=== PATIENT | female | born 1950 | race Caucasian/White ===

== ENCOUNTER 2017-08-17 11:34 | Emergency (ER) | payer OTHER ==
[~2017-08-17] VITALS: Ht 154.9 cm; Wt 66.7 kg
[2017-08-17 11:37] VITALS: Ht 154.9 cm; Wt 66.7 kg
[2017-08-17] MEDS ORDERED: ACETAMINOPHEN 500 MG TAB PO STA (11:53)
[2017-08-17] MEDS ORDERED: BISM262O23 PO (11:54)
[2017-08-17] MEDS ORDERED: AMOX500C2 PO (11:54)
[2017-08-17] MEDS ORDERED: ACET500C5 PO (11:54)
--- NOTE | 2017-08-17 11:57 | ERD ---
ER Documentation Chief Complaint Chief Complaint pt bib family with c/o sore throat x 3 days HPI This 67-year-old female presents with sore throat for last 3 days. She also has chills. She is no significant cough, no vomiting abdominal pain. She has had some diarrhea nonbloody and no mucus ROS All systems reviewed and are negative except as per history of present illness. Medications Home Meds Active Scripts Bismuth Subsalicylate* (Pepto-Bismol*) 262 Mg/15 Ml Oral.susp, 15 ML PO Q3H Y for DIARRHEA for 4 Days, ML Prov:FITO CAUSEY MD 08/17/17 Acetaminophen* (Tylophen*) 500 Mg Capsule, 1 CAP PO Q6H Y for PAIN AND OR ELEVATED TEMP, #15 CAP Prov:FITO CAUSEY MD 08/17/17 Amoxicillin* (Amoxicillin*) 500 Mg Cap, 500 MG PO TID for 10 Days, CAP Prov:FITO CAUSEY MD 08/17/17 Allergies Allergies: Coded Allergies: No Known Allergy (Unverified , 08/17/17) Physical Exam Vitals Vital Signs Date Time Temp Pulse Resp B/P Pulse Ox O2 Delivery O2 Flow Rate FiO2 08/17/17 11:37 97.9 78 18 138/78 98 Physical Exam Const: [] Alert, [id number]. Head: Atraumatic Eyes: Normal Conjunctiva ENT: Normal External Ears, Nose and Mouth. Erythema of the posterior oropharynx. Neck: Full range of motion..~ No meningismus. Resp: Clear to auscultation bilaterally Cardio: Regular rate and rhythm, no murmurs Abd: Soft, non tender, non distended. Normal bowel sounds Skin: No petechiae or rashes Back: No midline or flank tenderness Ext: No cyanosis, or edema Neur: Awake and alert Psych: Normal Mood and Affect Results 24 hrs Current Medications Medications (Trade) Dose Ordered Sig/Khanh Route PRN Reason Start Time Stop Time Status Last Admin Dose Admin Acetaminophen (Tylenol Tab) 500 mg ONCE STAT PO 08/17/17 11:53 08/17/17 11:54 DC Procedures/MDM She presents with signs of pharyngitis febrile illness. She has no evidence of abscess, airway obstruction, sepsis. She will treated with amoxicillin and Tylenol Pepto-Bismol, primary care follow-up and return precautions. Departure Diagnosis: Primary Impression: Sore throat Additional Impression: Diarrhea Diarrhea type: unspecified type Qualified Code: R19.7 - Diarrhea, unspecified type Condition: Stable Patient Instructions: Pharyngitis, Strep (Presumed) Additional Instructions: Cheque otro vez con alexander doctor primario en el proximo garner or regresa para mas o nueva simptomas. FITO CAUSEY MD Aug 17, 2017 11:57
== END 2017-08-17 12:04 | disposition home or self-care (01) ==
LOC: FTE 11:34
DX: J02.9 Acute pharyngitis, unspecified (principal); R19.7 Diarrhea, unspecified
CPT/HCPCS: Z7502; Z7610; 99283

== ENCOUNTER 2018-05-14 20:27 | Emergency (ER) | END 2018-05-14 20:51 | disposition left against medical advice (07) ==

== ENCOUNTER 2018-06-07 09:04 | Emergency (ER) | END 2018-06-07 10:41 | disposition home or self-care (01) ==

== ENCOUNTER 2019-01-20 11:00 | Emergency (ER) | payer BC, OTHER ==
[~2019-01-20] VITALS: Ht 160 cm; Wt 70.5 kg
[~2019-01-20 11:00] MED LIST: ACET500C5 PO; AMOX500C2 PO; BISM262O23 PO; NAPR-985 PO
[2019-01-20 11:03] VITALS: Ht 160 cm; Wt 70.5 kg
[2019-01-20] MEDS ORDERED: KETOROLAC 30 MG INJ IM STA (11:57)
[2019-01-20] MEDS ORDERED: MELO15TA30 PO (14:11)
--- NOTE | 2019-01-20 14:46 | ERD ---
ER Documentation Chief Complaint Chief Complaint RIGHT KNEE PAIN/INJURY X 1 WEEK GOT WORSE SINCE LAST NIGHT HPI 68-year-old female patient with a past medical history of hypertension presents to the ED complaining of right knee pain and injury that started about 1 week ago. Patient reports that she may be apply more pressure on her right knee since she had a left hip injury about 1 year ago. Describes pain as a strong sensation and rates it a 10 out of 10. States that she been taking naproxen and ibuprofen without any relief. Denies any chest pain, shortness of breath, nausea, vomiting, diarrhea, neck stiffness. ROS All systems reviewed and are negative except as per history of present illness. Medications Home Meds Active Scripts Meloxicam* (Mobic*) 15 Mg Tablet, 15 MG PO DAILY, #30 TAB Prov:YURY OSUNA PA-C 01/20/19 Naproxen* (Naprosyn*) 500 Mg Tablet, 500 MG PO BID PRN for PAIN AND/OR INFLAMMATION, #30 TAB Prov:BALTAZAR SUMMERS 06/07/18 Bismuth Subsalicylate* (Pepto-Bismol*) 262 Mg/15 Ml Oral.susp, 15 ML PO Q3H PRN for DIARRHEA for 4 Days, ML Prov:FITO CAUSEY MD 08/17/17 Acetaminophen* (Tylophen*) 500 Mg Capsule, 1 CAP PO Q6H PRN for PAIN AND OR ELEVATED TEMP, #15 CAP Prov:FITO CAUSEY MD 08/17/17 Amoxicillin* (Amoxicillin*) 500 Mg Cap, 500 MG PO TID for 10 Days, CAP Prov:FITO CAUSEY MD 08/17/17 Allergies Allergies: Coded Allergies: No Known Allergy (Unverified , 01/20/19) PMhx/Soc History of Surgery: Yes (left hipSX, BILATERAL EYE SX) Anesthesia Reaction: No Hx Neurological Disorder: No Hx Respiratory Disorders: No Hx Cardiac Disorders: No Hx Psychiatric Problems: No Hx Miscellaneous Medical Probl: Yes (arthritis) Hx Alcohol Use: No Hx Substance Use: No Hx Tobacco Use: No Smoking Status: Never smoker FmHx Family History: No diabetes, No coronary disease Physical Exam Vitals Vital Signs Date Temp Pulse Resp B/P (MAP) Pulse Ox O2 O2 Flow FiO2 Time Delivery Rate 01/20/19 98.2 88 18 164/85 99 11:03 (111) Physical Exam Const: [id number]-gfglhjdsj, well-nourished. In no acute distress. Head: Atraumatic, normocephalic Eyes: Normal Conjunctiva without injection ENT: Normal external ear, nose and mouth. Neck: Full range of motion. No meningismus. Resp: Clear to auscultation bilaterally. No wheezing, rhonchi, rales, or crackles. No accessory muscle use. No retractions. Cardio: Regular rate and rhythm, no murmurs Skin: No petechiae or rashes Back: No midline tenderness. No CVA tenderness. Ext: No cyanosis, or edema. Cap refill less than 2 seconds. Distal pulses intact bilaterally. Tenderness to palpation of the right patella with no erythema, edema. Patient was able to flex her right knee, painful with extension. Neur: Awake and alert. Normal gait and coordination. Muscle strength 5/5. Sensation intact bilaterally. Psych: Normal Mood and Affect Results 24 hrs Current Medications Medications Dose Sig/Kahnh Start Time Status Last (Trade) Ordered Route PRN Stop Time Admin Dose Reason Admin Ketorolac 30 mg ONCE STAT 01/20/19 DC 01/20/19 Tromethamine IM 11:57 01/20/19 12:11 (Toradol) 12:00 Procedures/MDM 68-year-old female patient with a past medical history of hypertension presents to ED complaining of right knee pain and injury that started about 1 week ago. Patient's blood pressure is 164/85. Blood Pressure Assessment: Patient's blood pressure was elevated (>120/80) but appears stable without evidence of hypertension emergency or urgency. The patient was counseled about the risks of hypertension and urged to pursue outpatient monitoring and therapy within a week with their primary care physician. Patient is afebrile and nontoxic-appearing. IMPRESSION: Moderate to severe osteoarthritis of the patellofemoral joint compartment. Small suprapatellar joint effusion. Etiology is uncertain. If there is a hi story of trauma, ligamentous and tendinous injury is not excluded. If characterization of the ligaments and tendons is needed MRI is recommended. Small enthesophyte that projects from the superior aspect of the patella. Finding could be the sequelae of quadriceps tendonitis. If further characterization is needed CT or MRI could be helpful. If there is high clinical suspicion for bony traumatic injury, further evaluation with CT should be considered. Patient is placed in a right knee Sean wrap. Splint Assessment: Neurovascularly intact pre and post Sean wrap placement with good fit. Chills include tendinitis versus osteoarthritis. Since patient does have a small suprapatellar joint effusion, instructed son to bring patient to obtain an orthopedic physician referral to get an MRI to rule any ligamentous or tendinous injuries. Patient's extremity symptoms have stabilized while they have been evaluated in the department and are appropriate for outpatient follow up. No evidence of fractures, dislocations, compartment syndrome, neurologic injury, vascular injury, open joint, open fracture, tendon laceration, septic arthritis, osteomyelitis, DVT, foreign body, or other emergent conditions. Diagnosis: Right knee pain Discharge medications: Mobic Follow up with primary care physician in 1-2 days. Instructed patient to return to the ED sooner for any worsening symptoms. Patient's questions were answered. Patient is hemodynamically stable. Patient understood and agreed with discharge plan. Patient discharged stable. Disclaimer: Inadvertent spelling and grammatical errors are likely due to EHR/dictation software use and do not reflect on the overall quality of patient care. Also, please note that the electronic time recorded on this note does not necessarily reflect the actual time of the patient encounter. Departure Diagnosis: Primary Impression: Right knee pain Chronicity: acute Qualified Codes: M25.561 - Pain in right knee Condition: Stable Patient Instructions: Osteoarthritis: Common Sites, Osteoarthritis: Tips for Daily Living, Tendonitis Referrals: [facility] YOU HAVE RECEIVED A MEDICAL SCREENING EXAM AND THE RESULTS INDICATE THAT YOU DO NOT HAVE A CONDITION THAT REQUIRES URGENT TREATMENT IN THE EMERGENCY DEPARTMENT. FURTHER EVALUATION AND TREATMENT OF YOUR CONDITION CAN WAIT UNTIL YOU ARE SEEN IN YOUR DOCTORS OFFICE WITHIN THE NEXT 1-2 DAYS. IT IS YOUR RESPONSIBILITY TO MAKE AN APPOINTMENT FOR [facility]- CARE. IF YOU HAVE A PRIMARY DOCTOR --you should call your primary doctor and schedule an appointment IF YOU DO NOT HAVE A PRIMARY DOCTOR YOU CAN CALL OUR PHYSICIAN REFERRAL HOTLINE AT IF YOU CAN NOT AFFORD TO SEE A PHYSICIAN YOU CAN CHOSE FROM THE FOLLOWING [facility] CLINICS [facility] [address] [facility]. [facility] [address] [facility] [address] [facility] [facility] [address] [facility] [address] [facility]. [facility]. [address] [facility]. [facility] YOU HAVE RECEIVED A MEDICAL SCREENING EXAM AND THE RESULTS INDICATE THAT YOU DO NOT HAVE A CONDITION THAT REQUIRES URGENT TREATMENT IN THE EMERGENCY DEPARTMENT. FURTHER EVALUATION AND TREATMENT OF YOUR CONDITION CAN WAIT UNTIL YOU ARE SEEN IN YOUR DOCTORS OFFICE WITHIN THE NEXT 1-2 DAYS. IT IS YOUR RESPONSIBILITY TO MAKE AN APPOINTMENT FOR FOLOW-UP CARE. IF YOU HAVE A PRIMARY DOCTOR --you should call your primary doctor and schedule and appointment IF YOU DO NOT HAVE A PRIMARY DOCTOR YOU CAN CALL OUR PHYSICIAN REFERRAL HOTLINE AT . IF YOU CAN NOT AFFORD TO SEE A PHYSICIAN YOU CAN CHOSE FROM THE FOLLOWING [facility] INSTITUTIONS: [facility] [address] [place] [address] [facility] [address] [place], [place] [id number] [place] [address] [address] [place] [address] [facility] URGENT CARE/SPECIALTIES Additional Instructions: Llame al doctor MAANA y ladonna yuki UVALDO PARA DENTRO DE 2-3 HANSEN.Dgale a la secretaria que nosotros le instruimos hacer esta uvaldo.Avise o llame si alexander condicin se empeora antes de la uvaldo. Regresa aqui si peor o no mejor. YURY OSUNA PA-C January 20, 2019 14:46
== END 2019-01-20 14:30 | disposition home or self-care (01) ==
LOC: FTE 11:00
DX: M25.561 Pain in right knee (principal); I10 Essential (primary) hypertension
CPT/HCPCS: 73562; 96372; 99284; J1885